=== PATIENT | male | born 2000 | race Caucasian/White ===

== ENCOUNTER 2020-08-30 06:09 | Emergency (ER) | payer MEDICAID ==
[~2020-08-30] VITALS: Ht 175.3 cm; Wt 77.3 kg
[2020-08-30] MEDS ORDERED: ipratropium/albuterol 3ml nebule NEB ONE (06:20)
[2020-08-30] MEDS ORDERED: methylPREDNISolone sod succ 125mg/2ml vial IV ONE (06:35)
[2020-08-30] MEDS ORDERED: ALBU18HF2 INH (07:28)
[2020-08-30 07:43] VITALS: BP 117/68
== END 2020-08-30 07:46 | disposition home or self-care (01) ==
LOC: ER 06:11
DX: J45.909 Unspecified asthma, uncomplicated (principal); F12.90 Cannabis use, unspecified, uncomplicated; Z87.891 Personal history of nicotine dependence; Z79.899 Other long term (current) drug therapy
CPT/HCPCS: 71045; 94640; 96374; 99283; J2930; 94760